=== PATIENT | male | born 1950 | race Caucasian/White ===

== ENCOUNTER 2017-12-07 07:09 | Day surgery (SDC) | payer MEDICARE ==
[2017-12-07] MEDS ORDERED: Sodium Chloride 0.9% 1,000 ML IV SCH (08:00)
[2017-12-07] MEDS ORDERED: Propofol 200 MG/20 ML SDV ONE (08:39)
[2017-12-07] MEDS ORDERED: Midazolam 1 MG/ML 2 ML SDV ONE (08:39)
[2017-12-07] MEDS ORDERED: fentaNYL 100 MCG/2 ML SDV ONE (08:39)
--- NOTE | 2017-12-07 15:30 | OR ---
DATE OF PROCEDURE: 12/07/2017 PROCEDURE: Colonoscopy. FINDINGS: 1. Descending colon polyp, approximately 1 cm, completely removed using hot snare. 2. Descending colon polyp #2, approximately 5 mm, completely removed using cold biopsy forceps. 3. Rectal polyp, approximately 5 mm, completely removed using cold biopsy forceps. COMPLICATIONS: None. FAMILY ADVOCATE: None. ANESTHETIC: MAC. PREOPERATIVE DIAGNOSIS: Screening colonoscopy. POSTOPERATIVE DIAGNOSIS: Screening colonoscopy. CONSENT: Risks, benefits, alternatives, and limitations including, but not limited to infection, bleeding, and perforation were explained, and the patient wished to proceed. PROCEDURE IN DETAIL: The patient was placed in the left lateral decubitus position. Digital rectal exam was performed without abnormality. The scope was introduced and advanced atraumatically to the ileocecal valve. The scope was brought back through the ascending, transverse, descending colon and retroflexed. The aforementioned polyps were all identified and completely removed. No other abnormalities noted. The patient tolerated the procedure well. Adonay Ng MD /[id number]
== END 2017-12-07 10:47 | disposition home or self-care (01) ==
LOC: JP.SDS 07:09
PROVIDERS: ATTEND Surgery
DX: Z12.11 Encounter for screening for malignant neoplasm of colon (principal); D12.3 Benign neoplasm of transverse colon; D12.5 Benign neoplasm of sigmoid colon; D12.8 Benign neoplasm of rectum; I12.9 Hypertensive chronic kidney disease with stage 1 through stage 4 chronic kidney disease, or unspecified chronic kidney disease; N18.3 Chronic kidney disease, stage 3 (moderate); E78.5 Hyperlipidemia, unspecified; K74.60 Unspecified cirrhosis of liver; Z88.8 Allergy status to other drugs, medicaments and biological substances
CPT/HCPCS: 45380; 45385; J2250; J2704; J3010; 88305

== ENCOUNTER 2020-12-24 07:37 | Day surgery (SDC) | payer MEDICARE ==
[2020-12-24] MEDS ORDERED: fentaNYL 100 MCG/2 ML SDV ONE (07:59)
[2020-12-24] MEDS ORDERED: Midazolam 1 MG/ML 2 ML SDV ONE (07:59)
[2020-12-24] MEDS ORDERED: Propofol 200 MG/20 ML SDV ONE (07:59)
[2020-12-24] MEDS ORDERED: Sodium Chloride 0.9% 1,000 ML IV SCH (08:30)
--- NOTE | 2020-12-24 14:18 | OR ---
DATE OF PROCEDURE: 12/24/2020 SURGEON: Adonay Ng MD PROCEDURE: Colonoscopy. FINDINGS: 1. Transverse colon polyp, approximately 8 mm, completely removed using hot snare wire device. 2. Descending colon polyp #1, approximately 5 mm, completely removed using cold biopsy forceps. 3. Descending colon polyp #2, approximately 5 mm, completely removed using cold biopsy forceps. COMPLICATION: None. [employer]: None. ANESTHESIA: MAC. PREOPERATIVE DIAGNOSIS: Screening colonoscopy. POSTOPERATIVE DIAGNOSIS: Screening colonoscopy. RISKS: Risks, benefits, alternatives, and limitations including, but not limited to infection, bleeding, perforation, false positive, false negatives were explained to the patient and they wished to proceed. PROCEDURE IN DETAIL: The patient was placed in the left lateral decubitus position. Digital rectal exam was performed without abnormalities. The scope was introduced and advanced atraumatically to the ileocecal valve. A photo was taken. The scope was brought back to the ascending, transverse, descending colon, and retroflexed. No evidence of old or new blood. No masses. The aforementioned polyps were identified and completely removed. No abnormalities on retroflexion. The patient tolerated procedure well. Adonay Ng MD /[id number]
== END 2020-12-24 11:05 | disposition home or self-care (01) ==
LOC: JP.SDS 07:37
PROVIDERS: ATTEND Surgery
DX: Z12.11 Encounter for screening for malignant neoplasm of colon (principal); D12.3 Benign neoplasm of transverse colon; D12.4 Benign neoplasm of descending colon; Z88.8 Allergy status to other drugs, medicaments and biological substances
CPT/HCPCS: 45385; 88305; J2250; J2704; J3010; J7030

== ENCOUNTER 2024-04-09 06:09 | Day surgery (SDC) | payer MEDICARE ==
[2024-04-09] MEDS: Lactated Ringers 1,000 ML IV SCH (07:12)
[2024-04-09] MEDS ORDERED: fentaNYL 100 MCG/2 ML SDV ONE (07:15)
[2024-04-09] MEDS ORDERED: Propofol 200 MG/20 ML SDV ONE ×2 (07:15→07:52)
== END 2024-04-09 09:10 | disposition home or self-care (01) ==
LOC: JP.SDS 06:09
PROVIDERS: ATTEND Surgery
DX: Z12.11 Encounter for screening for malignant neoplasm of colon (principal); D12.3 Benign neoplasm of transverse colon; D12.2 Benign neoplasm of ascending colon; I12.9 Hypertensive chronic kidney disease with stage 1 through stage 4 chronic kidney disease, or unspecified chronic kidney disease; N18.30 Chronic kidney disease, stage 3 unspecified; E78.5 Hyperlipidemia, unspecified; Z88.8 Allergy status to other drugs, medicaments and biological substances
CPT/HCPCS: 45380; 45385; J2704; J3010; J7120; 00811-QZ; 88305